=== PATIENT | female | born 1955 | race Caucasian/White ===

== ENCOUNTER 2017-11-03 16:04 | Outpatient (CLI) | payer BC | END 2017-11-03 19:03 | disposition home or self-care (01) | LOC: SMA 16:04 | PROVIDERS: ATTEND Family Medicine | DX: Z12.31 Encounter for screening mammogram for malignant neoplasm of breast (principal) | CPT/HCPCS: G0202 ==

== ENCOUNTER 2019-04-26 15:40 | Outpatient (CLI) | payer BC | END 2019-04-26 20:45 | disposition home or self-care (01) | LOC: SMA 15:40 | PROVIDERS: ATTEND Family Medicine | DX: Z12.31 Encounter for screening mammogram for malignant neoplasm of breast (principal) | CPT/HCPCS: 77067 ==

== ENCOUNTER 2021-02-24 15:44 | Outpatient (CLI) | payer BC | END 2021-02-24 18:50 | disposition home or self-care (01) | LOC: SMA 15:44 | PROVIDERS: ATTEND Family Medicine | DX: Z12.31 Encounter for screening mammogram for malignant neoplasm of breast (principal); N64.89 Other specified disorders of breast | CPT/HCPCS: 77067 ==